=== PATIENT | male | born 1950 ===

== ENCOUNTER 2022-12-14 19:30 | Emergency (ER) | payer SELFPAY ==
--- NOTE | 2022-12-14 20:13 | PC.NURSE ---
pt walked out prior to triage. pt states its been bandaged up by EMS and its not that bad pt states he doesn't want to wait and he will get it checked out in the morning.
== END 2022-12-14 20:13 | disposition left against medical advice (07) ==
LOC: ANHED 20:23
PROVIDERS: PCP Family Medicine
DX: Z53.21 Procedure and treatment not carried out due to patient leaving prior to being seen by health care provider (principal)
CPT/HCPCS: 99199